=== PATIENT | female | born 1950 | race Caucasian/White ===

== ENCOUNTER 2018-04-17 10:40 | Emergency (ER) | payer OTHER, MEDICAID ==
[~2018-04-17] VITALS: Ht 167.6 cm; Wt 63.5 kg
[2018-04-17 10:47] VITALS: BP 135/82
[2018-04-17] MEDS ORDERED: LORAZEPAM 1 MG TABLET PO ONE (11:00)
[2018-04-17] MEDS ORDERED: LORAZEPAM 1 MG TABLET ONE (11:12)
== END 2018-04-17 11:18 | disposition home or self-care (01) ==
LOC: ER 10:41
DX: F41.9 Anxiety disorder, unspecified (principal)
CPT/HCPCS: 99284; A4606; Z7610

== ENCOUNTER 2018-04-17 11:43 | Emergency (ER) | payer OTHER, MEDICAID ==
[~2018-04-17] VITALS: Ht 165.1 cm; Wt 65.8 kg
[2018-04-17 12:31] VITALS: BP 106/68
== END 2018-04-17 12:50 | disposition home or self-care (01) ==
LOC: ER 11:45
DX: J20.9 Acute bronchitis, unspecified (principal); F17.210 Nicotine dependence, cigarettes, uncomplicated
CPT/HCPCS: 99283; 99406; A4606; Z7610

== ENCOUNTER 2019-01-19 21:41 | Emergency (ER) | payer MEDICARE, MEDICAID ==
[~2019-01-19] VITALS: Ht 165.1 cm; Wt 55.3 kg
[2019-01-19 21:46] VITALS: BP 121/75
[2019-01-19] MEDS ORDERED: IBUPROFEN 600 MG TABLET PO ONE ×2 (22:53→23:30)
[2019-01-19] MEDS ORDERED: ONDANSETRON 4 MG TAB.RAPDIS SL ONE (23:00)
[2019-01-19] MEDS ORDERED: HYDROCODONE/APAP 10/325MG 1 EA TABLET PO ONE (23:00)
--- NOTE | 2019-01-20 01:29 | NUR ---
PT STATED THAT SHE LIVES AT [address] [place] [address], [place], [place]. NURSING LOOM CHANGER WILL BRING A TAXI VOUCHER LATER.
--- NOTE | 2019-01-20 01:45 | NUR ---
Patient discharged to home in stable condition. Written and verbal after care instructions given. Patient verbalizes understanding of instruction.Patient is awake and alert to self, day, and place.PT ambulatory with a steady gait with assistance of crutches. Taxi voucher provided for ride home.
== END 2019-01-20 02:44 | disposition home or self-care (01) ==
LOC: ER 21:47
DX: S82.045A Nondisplaced comminuted fracture of left patella, initial encounter for closed fracture (principal); F17.200 Nicotine dependence, unspecified, uncomplicated; W01.0XXA Fall on same level from slipping, tripping and stumbling without subsequent striking against object, initial encounter; Y93.89 Activity, other specified; Y92.480 Sidewalk as the place of occurrence of the external cause; Y99.8 Other external cause status
CPT/HCPCS: 29505; 73564; 99283; A4606

== ENCOUNTER 2019-07-29 13:21 | Emergency (ER) | payer MEDICARE, MEDICAID ==
[~2019-07-29] VITALS: Ht 165.1 cm; Wt 54.0 kg
--- NOTE | 2019-07-29 13:27 | NUR ---
PT BIB SELF C/O "Blood in stool x3days (Red) Last 3mornings Loose" PT IS AAOX4, NOT IN RESPIRATORY DISTRESS, V/S STABLE, KEPT RESTED AND COMFORTABLE, WILL CONTINUE TO MONITOR, AWAITING ER MD FOR EVAL.
--- NOTE | 2019-07-29 14:06 | NUR ---
PT SEEN AND EXAMINED BY ABAD FIELDS.
--- NOTE | 2019-07-29 14:22 | NUR ---
IV LINE ESTABLISHED, BLOOD DRAWNED AND SENT TO LAB.
[2019-07-29 14:26] LABS: BASOPHILS # (AUTO) 0.1 /CMM (0.0-0.2); BASOPHILS % (AUTO) 0.5 % (0.0-2.0); EOSINOPHILS % (AUTO) 1.6 % (0.0-6.0); HEMATOCRIT 45 % (33-45); HEMOGLOBIN 15.3 g/dL (11.5-14.8); LYMPHOCYTES # (AUTO) 3.8 /CMM (0.8-4.8); MEAN CORPUSCULAR HGB CONC 34 g/dl (31.0-36.0); MEAN CORPUSCULAR VOLUME 90 fL (82-100); MONOCYTES # (AUTO) 0.7 /CMM (0.1-1.30); MONOCYTES % (AUTO) 5.8 % (2.0-12.0); NEUTROPHILS # (AUTO) 6.8 /CMM (1.8-8.9); NEUTROPHILS % (AUTO) 59.1 % (43.0-81.0); PLATELET COUNT (AUTO) 301 /CMM (150-450); RED BLOOD CELL COUNT(AUTO) 4.99 MIL/uL (4.0-5.2); WHITE BLOOD COUNT (AUTO) 11.5 K/uL (4.3-11.0)
[2019-07-29] MEDS ORDERED: ONDANSETRON HCL/PF 4 MG/2 ML VIAL IVP ONE (14:30)
[2019-07-29] MEDS ORDERED: ACETAMINOPHEN ES 500 MG TABLET PO ONE (14:30)
[2019-07-29 15:14] LABS: APPEARANCE,URINE Clear (CLEAR); BILIRUBIN,URINE Negative (NEGATIVE); BLOOD, URINE Negative Ery/uL (NEGATIVE); COLOR,URINE Yellow (YELLOW); KETONES,URINE Negative (NEGATIVE); LEUKOCYTE ESTERASE ,URINE Negative (NEGATIVE); NITRITE, URINE Negative (NEGATIVE); PROTEIN,URINE Negative (NEGATIVE); UGLUCOSE Negative (NEGATIVE); UROBILINOGEN,URINE 0.2 EU/dL (0.2)
[2019-07-29 15:28] LABS: CREATININE 0.7 mg/dL (0.6-1.3); POTASSIUM 3.5 mmol/L (3.5-5.1)
[2019-07-29 15:33] LABS: BILIRUBIN,DIRECT 0.1 mg/dL (0.0-0.2); BILIRUBIN,TOTAL 0.6 mg/dL (0.2-1.0); TOTAL PROTEIN, SERUM 7.9 g/dL (6.4-8.2)
[2019-07-29 15:44] LABS: OCCULT BLOOD STOOL NEGATIVE (NEGATIVE)
--- NOTE | 2019-07-29 16:06 | NUR ---
Darshana keller in [facility] - 07/29/19 at 1627 by CINDA PT IS BACK FROM THE CT SCAN.
[2019-07-29] MEDS ORDERED: IOHEXOL-300 100 ML VIAL IV ONE (16:07)
[2019-07-29] MEDS ORDERED: CT SWABBABLE VALVE TRANS SET 1 EA INFUS.SET MC ONE (16:08)
[2019-07-29] MEDS ORDERED: IV NS 0.9% 250 ML IV ONE (16:08)
--- NOTE | 2019-07-29 16:10 | NUR ---
PT WHEELED TO CT SCAN VIA [employer].
[2019-07-29 17:48] VITALS: BP 127/72
--- NOTE | 2019-07-29 17:48 | NUR ---
IV removed. Catheter intact and site benign. Pressure and 4x4 applied to site. No bleeding noted. Patient discharged to home in stable condition. Written and verbal after care instructions given. Patient verbalizes understanding of instruction.
== END 2019-07-29 17:49 | disposition home or self-care (01) ==
LOC: ER 13:21
DX: K62.5 Hemorrhage of anus and rectum (principal); F17.200 Nicotine dependence, unspecified, uncomplicated
CPT/HCPCS: 36415; 71045; 74177; 80048; 80076; 81001; 82272; 83690; 85025; 85730; 99284; J7050; Q9967; 81000-TC

== ENCOUNTER 2019-10-09 15:30 | Emergency (ER) | payer MEDICARE, MEDICAID ==
[~2019-10-09] VITALS: Ht 165.1 cm; Wt 55.3 kg
--- NOTE | 2019-10-09 15:42 | NUR ---
BIB SELF 69 YEAR OLD FEMALE c/o left ear pain on and off x 5 days 03/10 ps. ALERT AND ORIENTED X4, BREATHTING EVEN AND UNLABORED WITH NO DISTRESS NOTED. PT IS AMBULATORY, SKIN INTACT AND WARM TO TOUCH. WAITING TO BE SEEN BY
[2019-10-09 15:58] VITALS: BP 144/80
== END 2019-10-09 16:02 | disposition home or self-care (01) ==
LOC: ER 15:34
DX: H92.02 Otalgia, left ear (principal); F17.200 Nicotine dependence, unspecified, uncomplicated

== ENCOUNTER 2024-05-09 18:16 | Inpatient (IN) | payer MEDICARE, MEDICAID ==
[~2024-05-09] VITALS: Ht 162.6 cm; Wt 64.4 kg
--- NOTE | 2024-05-09 18:48 | NUR ---
20G iv ESTABLISHED IN THE RAC. BLOOD DRAWN LABELED AT BEDSIDE AND SENT TO LAB FOR PROCESSING .
--- NOTE | 2024-05-09 18:49 | NUR ---
[id number] FROM A BAR: WITNESSED SYNCOPAL EPISODE S/P "A COUPLE OF DRINKS" PT STATES SHE HIT HER HEAD.
--- NOTE | 2024-05-09 18:51 | NUR ---
XRAY AT BEDSIDE
[2024-05-09 18:57] LABS: BASOPHILS # (AUTO) 0.1 K/uL (0.0-0.2); BASOPHILS % (AUTO) 0.5 % (0.0-2.0); EOSINOPHILS # (AUTO) 0.2 K/uL (0.0-0.7); EOSINOPHILS % (AUTO) 1.7 % (0.0-6.0); HEMATOCRIT 43 % (33-45); HEMOGLOBIN 13.8 g/dL (11.5-14.8); LYMPHOCYTES # (AUTO) 3.2 K/uL (0.8-4.8); LYMPHOCYTES % (AUTO) 31.7 % (20.0-44.0); MEAN CORPUSCULAR HEMOGLOBIN 29 PG (26.0-33.0); MEAN CORPUSCULAR HGB CONC 32 g/dl (31.0-36.0); MEAN CORPUSCULAR VOLUME 89 fL (82-100); MONOCYTES % (AUTO) 9.9 % (2.0-12.0); NEUTROPHILS # (AUTO) 5.7 K/uL (1.8-8.9); NEUTROPHILS % (AUTO) 56.2 % (43.0-81.0); PLATELET COUNT (AUTO) 284 K/uL (150-450); RED BLOOD CELL COUNT(AUTO) 4.79 MIL/uL (4.0-5.2); RED CELL DISTRIBUTION WIDTH 14.4 % (11.5-15.0); WHITE BLOOD COUNT (AUTO) 10.1 K/uL (4.3-11.0)
[2024-05-09 19:28] LABS: CALCIUM, SERUM 8.9 mg/dL (8.5-10.1); CARBON DIOXIDE 21 mmol/L (21-32); CHLORIDE 104 mmol/L (98-107); GLUCOSE 107 mg/dL (74-106); POTASSIUM 3.2 mmol/L (3.5-5.1); SODIUM SERUM 136 mmol/L (136-145); UREA NITROGEN, BLOOD 7 mg/dL (7-18)
[2024-05-09 19:35] LABS: ALANINE AMINOTRANSFERASE 27 U/L (12-78); ALBUMIN 3.1 g/dL (3.4-5.0); ALKALINE PHOSPHATASE 87 U/L (46-116); ASPARTATE AMINOTRANSFERASE 21 U/L (15-37); BILIRUBIN,DIRECT 0.2 mg/dL (0.0-0.2); BILIRUBIN,TOTAL 0.8 mg/dL (0.2-1.0); TOTAL PROTEIN, SERUM 7.1 g/dL (6.4-8.2)
--- NOTE | 2024-05-09 19:44 | NUR ---
move sheet and clinicals submitted admit: syncope, stable, tele
[2024-05-09 19:51] LABS: INR 1.01 (0.91-1.10); PROTHROMBIN TIME 10.7 SECS (9.2-11.1)
[2024-05-09 20:06] LABS: THYROID STIMULATING HORMONE 2.15 uIU/mL (0.358-3.74)
[2024-05-09 20:35] LABS: AMPHETAMINE, URINE NEGATIVE (NEGATIVE); BARBITURATE, URINE NEGATIVE (NEGATIVE); BENZODIAZEPINE, URINE NEGATIVE (NEGATIVE); CANNABINOID, URINE NEGATIVE (NEGATIVE); COCCAINE, URINE NEGATIVE (NEGATIVE); OPIATE, URINE NEGATIVE (NEGATIVE); PHENCYCLIDINE SCREEN,URINE NEGATIVE (NEGATIVE)
--- NOTE | 2024-05-09 21:19 | NUR ---
RM 320-2
[2024-05-09] MEDS ORDERED: ACETAMINOPHEN 325 MG TABLET PO PRN (22:00)
[2024-05-09] MEDS ORDERED: ZOLPIDEM TARTRATE 5 MG TABLET PO PRN (22:00)
[2024-05-09] MEDS ORDERED: MAG HYDROX/AL HYDROX/SIMETH 30 ML UDC PO PRN (22:00)
[2024-05-09] MEDS ORDERED: ONDANSETRON HCL/PF 4 MG/2 ML VIAL IVP PRN (22:00)
[2024-05-09] MEDS ORDERED: Z GUARD REMEDY 4 OZ OINT TP PRN (22:00)
[2024-05-09] MEDS ORDERED: MAGNESIUM HYDROXIDE 30 ML UDC PO PRN (22:00)
[2024-05-09 23:00] VITALS: BP 133/78; TEMP 97.7; O2SAT 95
[2024-05-09] MEDS: POTASSIUM CHLORIDE 20 MEQ TAB.PRT.SR PO ONE (23:59)
[2024-05-10] VITALS: BP 105/67; TEMP 98.1; O2SAT 96
[2024-05-10 00:36] VITALS: BP 133/78; TEMP 97.7; O2SAT 95
[2024-05-10 01:56] VITALS: BP 105/67; TEMP 98.1; O2SAT 96
--- NOTE | 2024-05-10 01:56 | NUR ---
DRESS CUTTER ADMITTING NOTES: RECEIVED PATIENT FROM ER AT 10:15PM VIA [facility], AWAKE, ALERT, VERBALLY RESPONSIVE. A/O X4, ABLE TO MAKE NEEDS KNOWN. CAME IN FROM A BAR FOR WITNESSED SYNCOPE. AMBULATORY AND ABLE TO TRANSFER FROM [facility] TO BED EASILY. NO ACUTE DISTRESS NOTED AT THIS TIME. DENIES ANY PAIN OR DISCOMFORT. ON ROOM AIR, TOLERATING WELL. RESPIRATION EVEN AND NON-LABORED. SKIN ASSESSMENT DONE, SKIN IS WARM TO TOUCH, WITH LEFT SCALP LACERATION, WITH LEFT SHOULDER LIVER SPOT, WITH LEFT ARM BRUISE, WITH BILATERAL LEG SCATTERED SCRATCHES AND RASHES, WITH BACK SCRATCHES AND RASHES, WITH CHEST RASHES AND LIVER SPOTS, AND ABDOMINAL RASHES, TOOK PICTURES FOR ADMISSION DOCUMENTATION AND WOUND CARE CONSULT TRIGGERED. AMBULATORY BUT SINCE WITH HISTORY OF FALL, PLACED ON PUREWICK ATTACHED TO WALL SUCTION. LUNGS CLEAR BILATERALLY UPON AUSCULTATION. BOWEL SOUNDS PRESENT. WITH IV ACCESS ON RIGHT AC G#20, ON SALINE LOCK, PATENT, AND INTACT, NO SIGNS OF PHLEBITIS OR INFILTRATION NOTED. PLACED ON TELEMETRY BOX FOR CARDIAC MONITORING, WITH A RECENT READING OF NORMAL SINUS RHYTHM @85BPM. ORIENTED TO THE UNIT. INTERVIEWED FOR HISTORY. ALL BELONGINGS ACCOUNTED FOR. MEDICATIONS SENT TO PHARMACY FOR SAFE KEEPING AND PATIENT CONSENTED. VITAL SIGNS FOLLOWS: T=97.7 P=85 R=18 GM=190/78, PAIN: 0/10, O2RA= 95%. NURSING SWALLOW TEST DONE, ABLE TO PERFORM EASILY. HOSPITALIST AND CHARGE NURSE AWARE OF THE ADMISSION. FALL AND SAFETY MEASURES IMPLEMENTED (BED ON LOW AND LOCKED POSITION, SIDE RAILS UP X3), CALL LIGHT WITHIN REACH. PLAN OF CARE ONGOING.
[2024-05-10 04:00] VITALS: BP 129/81; TEMP 97.9; O2SAT 95
[2024-05-10 04:36] VITALS: BP 129/81; TEMP 97.9; O2SAT 95
--- NOTE | 2024-05-10 06:53 | NUR ---
SILK SCREEN REPAIRER CLOSING NOTES: PATIENT AWAKE, ALERT, VERBALLY RESPONSIVE. A/O X4, ABLE TO MAKE NEEDS KNOWN. NO ACUTE DISTRESS NOTED AT THIS TIME. DENIES ANY PAIN OR DISCOMFORT. ON ROOM AIR, TOLERATING WELL. RESPIRATION EVEN AND NON-LABORED. SKIN ASSESSMENT DONE, SKIN IS WARM TO TOUCH, WITH LEFT SCALP LACERATION, WITH LEFT SHOULDER LIVER SPOT, WITH LEFT ARM BRUISE, WITH BILATERAL LEG SCATTERED SCRATCHES AND RASHES, WITH BACK SCRATCHES AND RASHES, WITH CHEST RASHES AND LIVER SPOTS, AND ABDOMINAL RASHES, NO WORSENING OF CURRENT SKIN ISSUES, LACERATION CLEANSE WITH NS AND PAT DRY, LEAVE OPEN TO AIR, TOOK PICTURES OF SKIN ASSESSMENT ISSUES FOR ADMISSION DOCUMENTATION AND WOUND CARE CONSULT TRIGGERED. AMBULATORY BUT SINCE WITH HISTORY OF FALL, PLACED ON PUREWICK ATTACHED TO WALL SUCTION. WITH IV ACCESS ON RIGHT AC G#20, ON SALINE LOCK, PATENT, AND INTACT, NO SIGNS OF PHLEBITIS OR INFILTRATION NOTED. PLACED ON TELEMETRY BOX FOR CARDIAC MONITORING, WITH A RECENT READING OF NORMAL SINUS RHYTHM @85BPM. BROUGHT-IN MEDS GIVEN TO PHARMACY FOR SAFE KEEPING CONSENTED BY THE PATIENT. DUE MEDS GIVEN. FALL AND SAFETY MEASURES MAINTAINED IN PLACE. BED ALARM ON. BED IN LOW AND LOCKED POSITION. CALL LIGHT AND TABLE WITHIN REACH. SIDE RAILS UP X3. TURNED/REPOSITIONED Q2H PER HOSPITAL PROTOCOL. ASSISTED WITH ADLS. ON CONTINUOUS MONITORING FOR SIGNIFICANT CHANGES. ATTENDED HEALTH NEEDS. KEPT CLEAN AND COMFORTABLE. WILL ENDORSE TO THE NEXT NURSE ON DUTY FOR CONTINUITY OF CARE.
[2024-05-10] MEDS: PANTOPRAZOLE 40 MG TABLET.DR PO SCH (06:57)
--- NOTE | 2024-05-10 07:30 | NUR ---
RN OPENING NOTE RECEIVED PATIENT IN BED, AWAKE. A/O X4, VERBALLY RESPONSIVE NAD ABLE TO MAKE NEEDS KNOWN. NO SIGNS OF ACUTE DISTRESS NOTED. ON ROOM AIR, BREATHING EVEN AND UNLABORED. DENIES ANY PAIN AT THIS TIME. ON TELE MONITORING, SHOWING SR, HR @68. NOTED WITH IV ACCESS ON RIGHT AC #20G, INTACT AND PATENT, SALINE LOCKED. PUREWICK CATHETER IN PLACE, ATTACHED TO WALL SUCTION. SAFETY MEASURE IN PLACE. BED IN LOW AND LOCKED POSITION, SIDE RAILS UP X2, CALL LIGHT AND TABLE PLACED WITHIN EASY REACH. PLAN OF CARE ONGOING.
[2024-05-10 08:00] VITALS: BP 150/70; TEMP 98.1; O2SAT 97
[2024-05-10 08:13] LABS: BASOPHILS % (AUTO) 0.3 % (0.0-2.0); EOSINOPHILS # (AUTO) 0.2 K/uL (0.0-0.7); HEMATOCRIT 40 % (33-45); HEMOGLOBIN 13.2 g/dL (11.5-14.8); LYMPHOCYTES # (AUTO) 3.3 K/uL (0.8-4.8); LYMPHOCYTES % (AUTO) 33.6 % (20.0-44.0); MEAN CORPUSCULAR HEMOGLOBIN 29 PG (26.0-33.0); MEAN CORPUSCULAR HGB CONC 33 g/dl (31.0-36.0); MEAN CORPUSCULAR VOLUME 89 fL (82-100); MONOCYTES # (AUTO) 0.7 K/uL (0.1-1.30); MONOCYTES % (AUTO) 7.5 % (2.0-12.0); NEUTROPHILS # (AUTO) 5.6 K/uL (1.8-8.9); NEUTROPHILS % (AUTO) 56.6 % (43.0-81.0); PLATELET COUNT (AUTO) 286 K/uL (150-450); RED CELL DISTRIBUTION WIDTH 14.5 % (11.5-15.0); WHITE BLOOD COUNT (AUTO) 9.9 K/uL (4.3-11.0)
[2024-05-10] MEDS ORDERED: ATOR80TA PO (08:14)
[2024-05-10] MEDS ORDERED: ASPI-1169 PO (08:14)
[2024-05-10] MEDS ORDERED: METO-357 PO (08:14)
[2024-05-10] MEDS ORDERED: PANT40TA2 PO (08:14)
[2024-05-10] MEDS ORDERED: LOSA25TA27 PO (08:14)
[2024-05-10] MEDS ORDERED: EZET10TA15 PO (08:14)
[2024-05-10] MEDS ORDERED: FLUT16SP16 BNOSTRILS (08:14)
[2024-05-10] MEDS: ENOXAPARIN SODIUM 40 MG/0.4 ML DISP.SYRIN SQ SCH (08:40)
--- NOTE | 2024-05-10 09:11 | NUR ---
WOUND CARE CONSULT: PT PRESENTS WITH LEFT SCALP INJURY, PRESENT ON ADMISSION. NO ACTIVE BLEEDING NOTED AT THIS TIME. DR ANDERSEN CALLED FOR SURGICAL CONSULT. DISCUSSED SKIN PROTECTION WITH NURSING STAFF. PT USING PUREWICK FOR URINARY INCONTINENCE. MD IN AGREEMENT WITH PLAN OF CARE.
--- NOTE | 2024-05-10 10:22 | NUR ---
ORTHOSTATIC B/P LYING : B/P 119/63, HR 84 SITTING: B/P 131/72, HR 73 STANDING: B/P 115/77, HR 85
[2024-05-10] MEDS: POTASSIUM CHLORIDE 20 MEQ TAB.PRT.SR PO SCH (10:34)
[2024-05-10 10:43] LABS: ALANINE AMINOTRANSFERASE 22 U/L (12-78); ALBUMIN 2.6 g/dL (3.4-5.0); ALKALINE PHOSPHATASE 84 U/L (46-116); ASPARTATE AMINOTRANSFERASE 7 U/L (15-37); BILIRUBIN,DIRECT 0.1 mg/dL (0.0-0.2); BILIRUBIN,TOTAL 0.6 mg/dL (0.2-1.0); CALCIUM, SERUM 8.8 mg/dL (8.5-10.1); CARBON DIOXIDE 22 mmol/L (21-32); CHLORIDE 113 mmol/L (98-107); CREATININE 0.5 mg/dL (0.6-1.3); GLUCOSE 83 mg/dL (74-106); MAGNESIUM 2.2 mg/dL (1.8-2.4); NT-PRO BNP 255 pg/mL (0-125); PHOSPHORUS 3.4 mg/dL (2.5-4.9); POTASSIUM 3.7 mmol/L (3.5-5.1); SODIUM SERUM 146 mmol/L (136-145); TOTAL PROTEIN, SERUM 6.4 g/dL (6.4-8.2); UREA NITROGEN, BLOOD 5 mg/dL (7-18)
[2024-05-10 12:14] LABS: THYROID STIMULATING HORMONE 0.94 uIU/mL (0.358-3.74)
[2024-05-10 12:15] LABS: CHOLESTEROL 139 mg/dL (<200); HDL CHOLESTEROL 57 mg/dL (40-60); LDL 57 mg/dL (0-99); TRIGLYCERIDES 160 mg/dL (30-150)
[2024-05-10 12:22] LABS: MAGNESIUM 2.1 mg/dL (1.8-2.4)
--- NOTE | 2024-05-10 17:50 | NUR ---
COMPUTER PUBLISHER NOTE PATIENT DISCHARGED HOME IN STABLE CONDITION. PT REMAINS AWAKE, A/O X4, VERBALLY RESPONSIVE AND ABLE TO MAKE NEEDS KNOWN, AMBULATORY. NO SIGNS OF ACUTE DISTRESS NOTED. STABLE ON ROOM AIR. PATIENT'S CT HEAD, CAROTID US AND ECHOCARDIOGRAM ALL NEGATIVE. ID BAND REMOVED, IV ACCESS REMOVED, DRY DRESSING APPLIED TO SITE, NO BLEEDING NOTED. EXIT CARE FOLDER GIVEN TO PATIENT. HEALTH TEACHINGS AND DISCHARGE INSTRUCTIONS PROVIDED WITH VERBALIZATION OF UNDERSTANDING. PATIENT LEFT UNIT @1745, CADEN PEARSON ACCOMPANIED PATIENT TO THE LOBBY VIA W/C. TAP CARD GIVEN TO PATIENT FOR BUS TRANSPORTATION. CN AWARE OF DISCHARGE.
== END 2024-05-10 17:45 | disposition home or self-care (01) | DRG 312 ==
LOC: ER 18:30 → TELE 21:20 → MED 05-10 10:25
PROVIDERS: ADMIT Nurse Practitioner Family
DX: R55 Syncope and collapse (principal); E87.6 Hypokalemia; I25.10 Atherosclerotic heart disease of native coronary artery without angina pectoris; E78.5 Hyperlipidemia, unspecified; Z88.8 Allergy status to other drugs, medicaments and biological substances; I10 Essential (primary) hypertension; R73.9 Hyperglycemia, unspecified; E88.09 Other disorders of plasma-protein metabolism, not elsewhere classified; Z79.51 Long term (current) use of inhaled steroids; Z79.82 Long term (current) use of aspirin; Z79.899 Other long term (current) drug therapy; S01.01XA Laceration without foreign body of scalp, initial encounter; W18.30XA Fall on same level, unspecified, initial encounter; Y92.9 Unspecified place or not applicable; Z87.891 Personal history of nicotine dependence; F10.90 Alcohol use, unspecified, uncomplicated; Y90.0 Blood alcohol level of less than 20 mg/100 ml
CPT/HCPCS: 36415; 70450-TC; 71045-TC; 80048-TC; 80061-TC; 80076-TC; 82962-TC; 83735-TC; 83880; 84100-TC; 84439-TC; 84443-TC; 84484-TC; 85025-TC; 85730-TC; 86850-TC; 93307-TC; 93880-TC; G0378; G0480; J1650

== ENCOUNTER 2024-08-22 12:18 | Emergency (ER) | payer MEDICARE, MEDICAID ==
[~2024-08-22] VITALS: Ht 165.1 cm; Wt 77.1 kg
[~2024-08-22 12:18] MED LIST: ASPI-1169 PO; ATOR80TA PO; EZET10TA15 PO; FLUT16SP16 BNOSTRILS; LOSA25TA27 PO; METO-357 PO; PANT40TA2 PO
[2024-08-22 13:35] LABS: BASOPHILS # (AUTO) 0.1 K/uL (0.0-0.2); BASOPHILS % (AUTO) 0.6 % (0.0-2.0); EOSINOPHILS # (AUTO) 0.1 K/uL (0.0-0.7); EOSINOPHILS % (AUTO) 1.1 % (0.0-6.0); HEMATOCRIT 42 % (33-45); LYMPHOCYTES # (AUTO) 2.8 K/uL (0.8-4.8); LYMPHOCYTES % (AUTO) 32.3 % (20.0-44.0); MEAN CORPUSCULAR HEMOGLOBIN 30 PG (26.0-33.0); MEAN CORPUSCULAR HGB CONC 33 g/dl (31.0-36.0); MEAN CORPUSCULAR VOLUME 90 fL (82-100); MONOCYTES # (AUTO) 0.7 K/uL (0.1-1.30); MONOCYTES % (AUTO) 7.7 % (2.0-12.0); NEUTROPHILS % (AUTO) 58.3 % (43.0-81.0); PLATELET COUNT (AUTO) 270 K/uL (150-450); RED BLOOD CELL COUNT(AUTO) 4.64 MIL/uL (4.0-5.2); RED CELL DISTRIBUTION WIDTH 14.8 % (11.5-15.0); WHITE BLOOD COUNT (AUTO) 8.7 K/uL (4.3-11.0)
[2024-08-22 13:44] LABS: ALANINE AMINOTRANSFERASE 28 U/L (12-78); ALBUMIN 3.3 g/dL (3.4-5.0); ALKALINE PHOSPHATASE 77 U/L (46-116); ASPARTATE AMINOTRANSFERASE 20 U/L (15-37); BILIRUBIN,DIRECT 0.2 mg/dL (0.0-0.2); BILIRUBIN,TOTAL 0.8 mg/dL (0.2-1.0); CALCIUM, SERUM 9.2 mg/dL (8.5-10.1); CARBON DIOXIDE 25 mmol/L (21-32); CHLORIDE 110 mmol/L (98-107); CREATININE 0.6 mg/dL (0.6-1.3); GLUCOSE 112 mg/dL (74-106); POTASSIUM 3.4 mmol/L (3.5-5.1); SODIUM SERUM 145 mmol/L (136-145); TOTAL PROTEIN, SERUM 6.9 g/dL (6.4-8.2); UREA NITROGEN, BLOOD 13 mg/dL (7-18)
[2024-08-22] MEDS: IV NS 0.9% 1,000 ML BAG IV ONE (14:41)
[2024-08-22 14:57] LABS: NT-PRO BNP 396 pg/mL (0-125)
[2024-08-22 15:15] LABS: AMPHETAMINE, URINE NEGATIVE (NEGATIVE); BARBITURATE, URINE NEGATIVE (NEGATIVE); BENZODIAZEPINE, URINE NEGATIVE (NEGATIVE); COCCAINE, URINE NEGATIVE (NEGATIVE); OPIATE, URINE NEGATIVE (NEGATIVE); PHENCYCLIDINE SCREEN,URINE NEGATIVE (NEGATIVE)
[2024-08-22 15:18] LABS: CANNABINOID, URINE POSITIVE (NEGATIVE)
[2024-08-22 15:21] LABS: INR 1.03 (0.91-1.10); PARTIAL THROMBOPLASTIN TIME 25.9 SEC (24.3-34.3); PROTHROMBIN TIME 10.9 SECS (9.2-11.1)
[2024-08-22 15:41] LABS: ALCOHOL, BLOOD < 3 mg/dL (0-10)
[2024-08-22 15:42] LABS: SERUM AMMONIA 9 umol/L (11-32)
[2024-08-22 18:10] VITALS: BP 147/73; TEMP 98.2; O2SAT 98
== END 2024-08-22 18:32 | disposition home or self-care (01) ==
LOC: ER 12:22
DX: R55 Syncope and collapse (principal); R42 Dizziness and giddiness; R41.82 Altered mental status, unspecified; R07.9 Chest pain, unspecified; F12.10 Cannabis abuse, uncomplicated; F17.200 Nicotine dependence, unspecified, uncomplicated; E78.5 Hyperlipidemia, unspecified; E87.6 Hypokalemia; I10 Essential (primary) hypertension; Z79.82 Long term (current) use of aspirin; Z79.899 Other long term (current) drug therapy; Z95.5 Presence of coronary angioplasty implant and graft; Z88.8 Allergy status to other drugs, medicaments and biological substances
CPT/HCPCS: 99285; 96360; 93005; 71045; 70450; 82140; 85025; 80048; 80076; 36415; 84443; 84484 ×2; 85730; 83880; 82962; 80320; 80307; J7030; G0480

== ENCOUNTER 2025-07-17 10:19 | Inpatient (IN) | payer BC, MEDICAID ==
[~2025-07-17] VITALS: Ht 165.1 cm; Wt 67.8 kg
[2025-07-17] VITALS (7 sets, daily range): BP systolic 138; BP diastolic 75; TEMP 97.9; O2SAT 96–99
[2025-07-17] MEDS ORDERED: IPRATROPIUM NEB FS 0.5 MG/2.5 ML AMPUL.NEB ONE (10:49)
[2025-07-17] MEDS ORDERED: ALBUTEROL FS 2.5 MG/3 ML VIAL.NEB ONE ×2 (10:49→13:15)
[2025-07-17] MEDS: ALBUTEROL FS 2.5 MG/3 ML VIAL.NEB CONTNEB ONE (10:54)
[2025-07-17] MEDS: IPRATROPIUM NEB FS 0.5 MG/2.5 ML AMPUL.NEB NEB ONE (10:54)
[2025-07-17 10:56] LABS: CALCIUM, SERUM 9.3 mg/dL (8.5-10.1); CREATININE 0.7 mg/dL (0.6-1.3); PLATELET COUNT (AUTO) 296 K/uL (150-450); RED BLOOD CELL COUNT(AUTO) 5.20 MIL/uL (4.0-5.2); RED CELL DISTRIBUTION WIDTH 14.0 % (11.5-15.0); SODIUM SERUM 136 mmol/L (136-145); UREA NITROGEN, BLOOD 8 mg/dL (7-18); WHITE BLOOD COUNT (AUTO) 10.7 K/uL (4.3-11.0)
[2025-07-17 11:09] LABS: ASPARTATE AMINOTRANSFERASE 24 U/L (15-37); NT-PRO BNP 582 pg/mL (0-125); TOTAL PROTEIN, SERUM 7.7 g/dL (6.4-8.2)
[2025-07-17] MEDS: ALBUTEROL FS 2.5 MG/3 ML VIAL.NEB NEB ONE (13:18)
[2025-07-17] MEDS ORDERED: Magnesium 1GM/D5W 100ML PREMIX 200 ML IV ONE (13:40)
[2025-07-17] MEDS: Magnesium 1GM/D5W 100ML PREMIX 200 ML IV ONE (13:50)
[2025-07-17] MEDS ORDERED: MAGNESIUM HYDROXIDE 30 ML UDC PO PRN (14:30)
[2025-07-17] MEDS ORDERED: ONDANSETRON HCL/PF 4 MG/2 ML VIAL IVP PRN (14:30)
[2025-07-17] MEDS ORDERED: Z GUARD REMEDY 4 OZ OINT TP PRN (14:30)
[2025-07-17] MEDS ORDERED: LEVOFLOXACIN 500 MG /D5W 100ML 500 MG in PREMIX 1 EA IV SCH (15:00)
[2025-07-17] MEDS ORDERED: MULT-1244 PO (15:26)
[2025-07-17] MEDS ORDERED: BUDE10.2 IH (15:26)
[2025-07-17] MEDS ORDERED: CALC-11 PO (15:26)
[2025-07-17] MEDS ORDERED: METO25TA4 PO (15:26)
[2025-07-17] MEDS: LEVOFLOXACIN 750 MG /D5W 150ML 750 MG in PREMIX 1 EA IV SCH (16:05)
[2025-07-17] MEDS: ALBUTEROL FS 2.5 MG/3 ML VIAL.NEB NEB SCH (20:04)
[2025-07-17] MEDS: IPRATROPIUM NEB FS 0.5 MG/2.5 ML AMPUL.NEB NEB SCH (20:04)
[2025-07-17] MEDS: POTASSIUM CHLORIDE 20 MEQ TAB.PRT.SR PO ONE (22:02)
[2025-07-17] MEDS: GUAIFENESIN/D-METHORPHAN HB 5 ML UDC PO PRN (22:51)
[2025-07-18] VITALS (10 sets, daily range): BP systolic 124–151; BP diastolic 80–92; TEMP 97.9–98.2; O2SAT 94–99
[2025-07-18] MEDS: ACETAMINOPHEN 325 MG TABLET PO PRN (05:22)
[2025-07-18 06:35] LABS: PLATELET COUNT (AUTO) 270 K/uL (150-450); RED BLOOD CELL COUNT(AUTO) 4.60 MIL/uL (4.0-5.2); RED CELL DISTRIBUTION WIDTH 14.2 % (11.5-15.0); WHITE BLOOD COUNT (AUTO) 17.7 K/uL (4.3-11.0)
[2025-07-18 06:54] LABS: CALCIUM, SERUM 9.4 mg/dL (8.5-10.1); CREATININE 0.8 mg/dL (0.6-1.3); PHOSPHORUS 1.8 mg/dL (2.5-4.9); SODIUM SERUM 143.0 mmol/L (136-145); UREA NITROGEN, BLOOD 11.0 mg/dL (7-18)
[2025-07-18] MEDS ORDERED: PANTOPRAZOLE 40 MG VIAL IV SCH (09:00)
[2025-07-18] MEDS: FLUTICASONE PROPIONATE 16 GM BOTTLE NS SCH (09:18)
[2025-07-18] MEDS: ASPIRIN 81 MG TAB.CHEW PO SCH (09:18)
[2025-07-18] MEDS: LOSARTAN POTASSIUM 25 MG TABLET PO SCH (09:18)
[2025-07-18] MEDS: PANTOPRAZOLE 40 MG TABLET.DR PO SCH (09:19)
[2025-07-18] MEDS: ATORVASTATIN 40 MG TABLET PO SCH ×2 (09:19→18:57)
[2025-07-18] MEDS: EZETIMIBE 10 MG TABLET PO SCH (09:19)
[2025-07-18] MEDS ORDERED: TRAMADOL HCL 50 MG TABLET PO PRN (12:30)
[2025-07-18] MEDS ORDERED: ZOLPIDEM TARTRATE 5 MG TABLET PO PRN (12:30)
[2025-07-18] MEDS: MAG HYDROX/AL HYDROX/SIMETH 30 ML UDC PO PRN (14:54)
[2025-07-18] MEDS: CALCIUM CARB 600MG /VIT D 1 EACH TABLET PO SCH (17:38)
[2025-07-18] MEDS: K PHOS NEUTRAL 250 MG TABLET PO ONE (17:39)
[2025-07-18] MEDS: BUDESONIDE RESPULE INH 0.5 MG/2 ML AMPUL.NEB HHN SCH (20:33)
[2025-07-19] VITALS (10 sets, daily range): BP systolic 117–133; BP diastolic 68–72; TEMP 98.2; O2SAT 92–100
[2025-07-19 07:26] LABS: CALCIUM, SERUM 9.7 mg/dL (8.5-10.1); CREATININE 0.8 mg/dL (0.6-1.3); PHOSPHORUS 2.9 mg/dL (2.5-4.9); SODIUM SERUM 146.0 mmol/L (136-145); UREA NITROGEN, BLOOD 13.0 mg/dL (7-18)
[2025-07-19] MEDS: MULTIVITAMINS,THERAGRAN 1 UDTAB TABLET PO SCH (08:38)
[2025-07-19] MEDS: POLYETHYLENE GLYCOL 3350 17 GM POWD.PACK PO SCH (11:52)
[2025-07-19] MEDS: ENOXAPARIN SODIUM 40 MG/0.4 ML DISP.SYRIN SQ SCH (14:31)
[2025-07-19] MEDS: FAMOTIDINE (20 MG) 20 MG TABLET PO SCH (21:48)
[2025-07-20] VITALS (8 sets, daily range): BP systolic 126–153; BP diastolic 61–77; TEMP 97.7–98.2; O2SAT 92–99
[2025-07-20 07:02] LABS: CALCIUM, SERUM 9.3 mg/dL (8.5-10.1); CREATININE 0.7 mg/dL (0.6-1.3); SODIUM SERUM 144.0 mmol/L (136-145); UREA NITROGEN, BLOOD 15.0 mg/dL (7-18)
[2025-07-20 11:49] LABS: PLATELET COUNT (AUTO) 261 K/uL (150-450); RED BLOOD CELL COUNT(AUTO) 4.95 MIL/uL (4.0-5.2); RED CELL DISTRIBUTION WIDTH 15.0 % (11.5-15.0); WHITE BLOOD COUNT (AUTO) 13.3 K/uL (4.3-11.0)
[2025-07-21] VITALS (13 sets, daily range): BP systolic 123–161; BP diastolic 74–89; TEMP 97.5–98.8; O2SAT 92–99
[2025-07-21 06:51] LABS: PLATELET COUNT (AUTO) 270 K/uL (150-450); RED BLOOD CELL COUNT(AUTO) 4.95 MIL/uL (4.0-5.2); RED CELL DISTRIBUTION WIDTH 14.4 % (11.5-15.0); WHITE BLOOD COUNT (AUTO) 12.5 K/uL (4.3-11.0)
[2025-07-21 07:07] LABS: CALCIUM, SERUM 9.6 mg/dL (8.5-10.1); CREATININE 0.8 mg/dL (0.6-1.3); SODIUM SERUM 140.0 mmol/L (136-145); UREA NITROGEN, BLOOD 14.0 mg/dL (7-18)
[2025-07-22] VITALS (14 sets, daily range): BP systolic 134–161; BP diastolic 71–98; TEMP 97.3–98.2; O2SAT 92–99
[2025-07-22 06:36] LABS: CALCIUM, SERUM 9.4 mg/dL (8.5-10.1); CREATININE 0.6 mg/dL (0.6-1.3); SODIUM SERUM 141.0 mmol/L (136-145); UREA NITROGEN, BLOOD 14.0 mg/dL (7-18)
[2025-07-22] MEDS: LOSARTAN POTASSIUM 25 MG TABLET PO SCH (08:43)
[2025-07-23] VITALS (11 sets, daily range): BP systolic 127–155; BP diastolic 72–103; TEMP 97.3–99; O2SAT 93–99
[2025-07-23 06:12] LABS: CALCIUM, SERUM 9.2 mg/dL (8.5-10.1); CREATININE 0.8 mg/dL (0.6-1.3); SODIUM SERUM 142.0 mmol/L (136-145); UREA NITROGEN, BLOOD 15.0 mg/dL (7-18)
[2025-07-24] VITALS (12 sets, daily range): BP systolic 119–136; BP diastolic 60–90; TEMP 97.3–97.7; O2SAT 93–99
[2025-07-24 05:59] LABS: CALCIUM, SERUM 9.3 mg/dL (8.5-10.1); CREATININE 0.7 mg/dL (0.6-1.3); SODIUM SERUM 144.0 mmol/L (136-145); UREA NITROGEN, BLOOD 16.0 mg/dL (7-18)
[2025-07-24] MEDS ORDERED: PRED20TA PO (16:44)
[2025-07-24] MEDS ORDERED: IPRA3AMP23 IH (16:47)
[2025-07-24] MEDS ORDERED: FLUT1BLS6 IH (16:47)
== END 2025-07-24 20:50 | DRG 202 ==
LOC: ER 10:29 → MED 16:22
PROVIDERS: ADMIT Nurse Practitioner Acute Care; ATTEND Nurse Practitioner Family
DX: J20.9 Acute bronchitis, unspecified (principal); J96.01 Acute respiratory failure with hypoxia; J45.901 Unspecified asthma with (acute) exacerbation; J44.1 Chronic obstructive pulmonary disease with (acute) exacerbation; J44.0 Chronic obstructive pulmonary disease with (acute) lower respiratory infection; E78.5 Hyperlipidemia, unspecified; I25.10 Atherosclerotic heart disease of native coronary artery without angina pectoris; I10 Essential (primary) hypertension; F17.210 Nicotine dependence, cigarettes, uncomplicated; Z95.5 Presence of coronary angioplasty implant and graft; Z20.822 Contact with and (suspected) exposure to COVID-19; Z88.8 Allergy status to other drugs, medicaments and biological substances; Z79.51 Long term (current) use of inhaled steroids; Z79.82 Long term (current) use of aspirin; Z79.899 Other long term (current) drug therapy; Z71.6 Tobacco abuse counseling; K59.00 Constipation, unspecified; J98.4 Other disorders of lung
CPT/HCPCS: 36415; 71045-TC; 80048-TC; 80076-TC; 83735-TC; 83880; 84100-TC; 84484-TC; 85025-TC; 87081-TC; 94760-TC; 94799-TC; 97110-TC; 97116-TC; 97530-TC; A4216; A4223; G0378; J1650; J1956; J2919; J3475; J7050